=== PATIENT | female | born 1980 | race Caucasian/White ===

== ENCOUNTER 2016-09-16 10:43 | Emergency (ER) | payer BC ==
[~2016-09-16] VITALS: Ht 154.9 cm; Wt 55.3 kg
[~2016-09-16 10:43] MED LIST: ALEVE220 M1 PO; CIPROFLOXACIN500 M1 PO; FLAGYL500 MG PO; IMODIUM A-D2 MG PO; LOMOTIL TABLET1 EACH PO; TRANSDERM-SCO1 PATCH TD
[2016-09-16] MEDS ORDERED: UCERIS9 MG PO (10:48)
[2016-09-16] MEDS ORDERED: LIALDA1.2 GM PO (10:48)
[2016-09-16] MEDS ORDERED: BENTYL 10 MG CA10 M1 PO (10:48)
[2016-09-16] MEDS ORDERED: AUGMENTIN 875875 MG PO (10:48)
[2016-09-16] MEDS ORDERED: PROVENTIL HFA6.7 G1 INH (12:16)
[2016-09-16] MEDS ORDERED: TESSALON PERLE100 MG PO (12:16)
[2016-09-16 12:33] VITALS: BP 140/95
== END 2016-09-16 12:38 | disposition home or self-care (01) ==
LOC: ER 10:43
DX: R09.1 Pleurisy (principal); R42 Dizziness and giddiness; R05 Cough; K50.90 Crohn's disease, unspecified, without complications; F17.210 Nicotine dependence, cigarettes, uncomplicated

== ENCOUNTER 2017-02-03 11:45 | Emergency (ER) | payer BC ==
[~2017-02-03] VITALS: Ht 154.9 cm; Wt 56.2 kg
[~2017-02-03 11:45] MED LIST changes: +AUGMENTIN 875875 MG PO; +BENTYL 10 MG CA10 M1 PO; +LIALDA1.2 GM PO; +PROVENTIL HFA6.7 G1 INH; +TESSALON PERLE100 MG PO; +UCERIS9 MG PO
[2017-02-03] MEDS ORDERED: TRANSDERM-SCO1 PATC1 TD (12:16)
[2017-02-03] MEDS ORDERED: ANTIVERT25 MG PO (14:25)
[2017-02-03] MEDS ORDERED: VALIUM2 MG PO (14:25)
[2017-02-03] MEDS ORDERED: NAPROSYN500 MG PO (14:25)
[2017-02-03 16:07] VITALS: BP 110/70
== END 2017-02-03 16:07 | disposition home or self-care (01) ==
LOC: ER 11:45
DX: H81.11 Benign paroxysmal vertigo, right ear (principal); R51 Headache; K50.90 Crohn's disease, unspecified, without complications; F10.99 Alcohol use, unspecified with unspecified alcohol-induced disorder

== ENCOUNTER 2017-03-07 09:22 | Emergency (ER) | payer BC ==
[~2017-03-07] VITALS: Ht 154.9 cm; Wt 52.6 kg
--- NOTE | ~2017-03-07 | EKG ---
[address] [address] ELECTROCARDIOGRAM REPORT Name: GUSTAVO YANES [id number] Admission: 03/07/17 Attend Phys: Discharge: 03/07/17 Date of : 82 Report #: [id number] THIS REPORT FOR: //name// [facility] ED Test Date: 2017-03-07 Test Time: 09:44:52 Pat Name: GUSTAVO YANES Department: Room: Gender: F [employer]: : 1980 Requested By: Zack Benítez Order Number: [id number] MD: Watson Whipple Measurements Intervals [place] Rate: 69 P: 71 MS: 117 QRS: 58 QRSD: 81 T: 7 QT: 385 QTc: 413 Interpretive Statements Sinus rhythm Borderline short MS interval No previous ECG available for comparison Electronically Signed On 03-09-2017 22:04:44 CDT by Watson Whipple [email or web address] <ELECTRONICALLY SIGNED> By: Watson Whipple MD 03/09/17 2204 [id number] [id number] MD DANETTE Palma
[~2017-03-07 09:22] MED LIST changes: +ANTIVERT25 MG PO; +NAPROSYN500 MG PO; +TRANSDERM-SCO1 PATC1 TD; +VALIUM2 MG PO
[2017-03-07 10:34] VITALS: BP 125/86
== END 2017-03-07 10:42 | disposition home or self-care (01) ==
LOC: ER 09:22
DX: R53.1 Weakness (principal); K50.90 Crohn's disease, unspecified, without complications